=== PATIENT | male | born 1990 | race African-American/Black ===

== ENCOUNTER 2017-03-12 23:32 | Emergency (ER) | payer SELFPAY ==
[~2017-03-12] VITALS: Ht 193 cm; Wt 93.0 kg
[2017-03-13 00:34] LABS: BASO % 1 % (0-3); EOS % 4 % (0-3); HEMATOCRIT 36.7 % (39.0-53.0); LYMPH # 3.3 x10^3/uL (1.0-4.8); LYMPH % 49 % (24-48); MEAN CORPUSCULAR HEMOGLOBIN 26 pg (25-35); MEAN CORPUSCULAR HGB CONC 33 g/dL (31-37); MEAN CORPUSCULAR VOLUME 79 fL (79-100); MONO % 8 % (0-9); NEUT % 39 % (31-73); PLATELET COUNT 205 x10^3/uL (140-400); RED BLOOD COUNT 4.64 x10^6/uL (4.30-5.70); RED CELL DISTRIBUTION WIDTH 15.5 % (11.5-14.5); WHITE BLOOD COUNT 6.8 x10^3/uL (4.0-11.0)
[2017-03-13 00:49] LABS: CALCIUM 8.9 mg/dL (8.5-10.1); CREATININE 1.1 mg/dL (0.7-1.3); GFR 95.8; POTASSIUM 3.8 mmol/L (3.5-5.1)
--- NOTE | 2017-03-13 01:02 | PHYS DOC ---
Past Medical History Past Medical History: No Pertinent History Past Surgical History: No Surgical History Alcohol Use: Heavy Additional Information: reports drinking etoh every day "sometimes, not all the time" Drug Use: Marijuana Adult General Chief Complaint Chief Complaint: WEAKNESS/GENERALIZED HPI HPI Patient is a 27 year old M who presents with with chest pain for the past day. Patient states the chest pain has been worse and just hasn't been feeling well. Patient has no cardiac history. Patient does admit to smoking and the use of marijuana. Patient denies any shortness of breath. Patient denies any nausea/ vomiting/diarrhea. Patient denies any fevers. Patient denies any risk factors for a DVT or PE. Patient has no family history of aortic dissections. Pertinent exam findings: Heart bradycardic without murmurs Lungs are clear to auscultation bilaterally without crackles wheeze or rales ED course: Patient was seen and examined the emergency room CBC, BMP, troponin, EKG, chest x-ray were ordered 0115: Patient was reexamined and updated on the lab results and EKG results and chest x-ray and based off his cardiac risk factors recommended patient follow PCP for further cardiac workup. Patient was feeling better. Questions were answered. Pertinent results: 2351: EKG shows sinus bradycardia rate of 56 no STEMI 0058: EKG shows sinus bradycardia rate of 52 and a STEMI and no change from previous EKG D-dimer was negative Troponin was negative CBC shows a hemoglobin of 12 BMP unremarkable HEART score =1 MDM: After reviewing the chart, CC/HPI/PMH, physical exam, [lab results], [ radiological results], do not believe the patient have an acute SC, PE, low suspicion for thoracic aortic dissection. Basic the patient's cardiac risk factors he be discharged home with outpatient follow-up for further cardiac evaluation. Recommended patient get a 2-D echo done as an outpatient to further evaluate his chest pain. Patient is comfortable being discharged home. Patient is stable for discharge. Additional verbal discharge instructions were provided to the patient and that if symptoms get worse or any new symptoms arise that are worrisome to the patient he is to return to the emergency room immediately Review of Systems Review of Systems GEN: Denies fevers, chills, sweats HEENT: Denies blurred vision, sore throat CV: chest pain RESP: Denies shortness of air, cough GI: Denies n/v/d NEURO: Denies confusion, dizziness MSK: Denies weakness, joint pain/swelling Allergies Allergies Allergies Coded Allergies Type Severity Reaction Last Updated Verified NSAIDS (Non-Steroidal Anti-Inflamma Allergy Severe "hives and i swell up " 07/19 Yes Physical Exam Physical Exam GEN.: No apparent distress. Alert and oriented. HEENT: Head is normocephalic, atraumatic NECK: Supple. LUNGS: CTAB. HEART: Bradycardia, S1, S2 present. Peripheral pulses intact ABDOMEN: Soft, nontender. Positive bowel sounds. EXTREMITIES: Without any cyanosis. NEUROLOGIC: Normal speech, normal tone PSYCHIATRIC: Normal affect, normal mood. SKIN: No ulcerations Current Patient Data Vital Signs Vital Signs Date Time Temp Pulse Resp B/P (MAP) Pulse Ox O2 Delivery O2 Flow Rate FiO2 03/12/17 23:50 97.4 55 16 165/105 (125) 99 Room Air 97.4 Lab Values Laboratory Tests Test 03/13/17 00:23 White Blood Count 6.8 x10^3/uL (4.0-11.0) Red Blood Count 4.64 x10^6/uL (4.30-5.70) Hemoglobin 12.0 g/dL (13.0-17.5) L Hematocrit 36.7 % (39.0-53.0) L Mean Corpuscular Volume 79 fL (79-100) Mean Corpuscular Hemoglobin 26 pg (25-35) Mean Corpuscular Hemoglobin Concent 33 g/dL (31-37) Red Cell Distribution Width 15.5 % (11.5-14.5) H Platelet Count 205 x10^3/uL (140-400) Neutrophils (%) (Auto) 39 % (31-73) Lymphocytes (%) (Auto) 49 % (24-48) H Monocytes (%) (Auto) 8 % (0-9) Eosinophils (%) (Auto) 4 % (0-3) H Basophils (%) (Auto) 1 % (0-3) Neutrophils # (Auto) 2.6 x10^3uL (1.8-7.7) Lymphocytes # (Auto) 3.3 x10^3/uL (1.0-4.8) Monocytes # (Auto) 0.5 x10^3/uL (0.0-1.1) Eosinophils # (Auto) 0.3 x10^3/uL (0.0-0.7) Basophils # (Auto) 0.0 x10^3/uL (0.0-0.2) D-Dimer (Latricia) 0.47 ug/mlFEU (0.00-0.50) Sodium Level 141 mmol/L (136-145) Potassium Level 3.8 mmol/L (3.5-5.1) Chloride Level 106 mmol/L (98-107) Carbon Dioxide Level 28 mmol/L (21-32) Anion Gap 7 (6-14) Blood Urea Nitrogen 19 mg/dL (8-26) Creatinine 1.1 mg/dL (0.7-1.3) Estimated GFR (Cockcroft-Gault) 95.8 Glucose Level 104 mg/dL (70-99) H Calcium Level 8.9 mg/dL (8.5-10.1) Troponin I Quantitative < 0.017 ng/mL (0.000-0.055) Laboratory Tests 03/13/17 00:23 Laboratory Tests 03/13/17 00:23 EKG EKG 2351: EKG shows sinus bradycardia rate of 56 no STEMI 0058: EKG shows sinus bradycardia rate of 52 and a STEMI and no change from previous EKG[] Radiology/Procedures Radiology/Procedures Chest x-ray NAD [] Course & Med Decision Making Course & Med Decision Making Pertinent Labs and Imaging studies reviewed. (See chart for details) [] Dragon Disclaimer Dragon Disclaimer This electronic medical record was generated, in whole or in part, using a voice recognition dictation system. Departure Departure Impression: Primary Impression: Chest pain Disposition: 01 HOME, SELF-CARE Condition: STABLE Referrals: NO PCP (PCP) Patient Instructions: Chest Pain (Nonspecific)-Brief Additional Instructions: Please follow-up with her family doctor for further cardiac workup including potentially an 2D echo Problem Qualifiers Primary Impression: Chest pain Chest pain type: unspecified Qualified Codes: R07.9 - Chest pain, unspecified AYANA HARGROVE DO Mar 13, 2017 01:02
[2017-03-13 02:26] VITALS: BP 146/56
--- NOTE | 2017-03-13 08:01 | RAD ---
Indication chest pain. PA and lateral views of the chest were obtained. No prior imaging is available. The heart, pulmonary vessels and mediastinum appear normal. The lungs are clear. IMPRESSION: Normal study
--- NOTE | 2017-03-13 12:51 | EKG ---
[facility] [address] [place] [address] Test Date: 2017-03-12 Test Time: 23:48:33 Pat Name: OSEAS ARMSTRONG Department: Room: Gender: M Traveling Engineer: : 1990 Requested By: AYANA HARGROVE Order Number: [id number] Reading MD: Drea Doshi Measurements Intervals [place] Rate: 56 P: 19 NC: 190 QRS: 24 QRSD: 92 T: 20 QT: 388 QTc: 377 Interpretive Statements SINUS RHYTHM NORMAL EKG RI6.01 Unconfirmed report No previous ECG available for comparison Electronically Signed On 03-13-2017 21:26:10 CDT by Drea Doshi
--- NOTE | 2017-03-13 12:52 | EKG ---
[facility] [address] [place] [address] Test Date: 2017-03-13 Test Time: 00:56:31 Pat Name: OSEAS ARMSTRONG Department: Room: Gender: M Wind Technician: : 1990 Requested By: AYANA HARGROVE Order Number: [id number] Reading MD: Drea Doshi Measurements Intervals [place] Rate: 52 P: 43 [place]: 188 QRS: 20 QRSD: 98 T: 11 QT: 410 QTc: 387 Interpretive Statements SINUS RHYTHM NORMAL ECG RI6.01 Unconfirmed report No previous ECG available for comparison Electronically Signed On 03-13-2017 21:26:26 CDT by Drea Doshi
== END 2017-03-13 02:27 | disposition home or self-care (01) ==
LOC: ER 23:32
DX: R07.9 Chest pain, unspecified (principal); F12.10 Cannabis abuse, uncomplicated; F10.10 Alcohol abuse, uncomplicated
CPT/HCPCS: 36415; 71020; 80048; 84484; 85027; 85379; 93005; 99285-25